=== PATIENT | female | born 1965 | race Two or more races ===

== ENCOUNTER 2024-04-30 13:10 | Day surgery (SDC) | payer MEDICAID, SELFPAY ==
[2024-04-29 15:24] VITALS: BMI 36.0
[2024-04-30] VITALS (12 sets, daily range): BP systolic 112–157; BP diastolic 70–96; PULSE 64–79; RESP 12–19; TEMP 36.7–36.9; O2SAT 96–100; BMI 22.8
[2024-04-30] MEDS: SODIUM CHLORIDE 0.9% 100 ML IV (14:30)
[2024-04-30] MEDS: DiphenhydrAMINE INJ 50 MG/ML VIAL 25 MG IV (14:37)
[2024-04-30] MEDS: MIDAZOLAM INJ 1 MG/ML VIAL 2 ML (ASD USE ONLY) 2 MG IV ×2 (14:41→15:03)
[2024-04-30] MEDS: fentaNYL CIT INJ 50 mCg/ML AMP 2ML (ASD USE ONLY) IV ×2 (14:42→15:03)
--- NOTE | 2024-04-30 16:04 | SUR.PHASEII ---
1515: Pt received for recovery. Report from Maeve KIMBLE. Pt sleepy. Easily aroused. Resp even, unlabored. VS stable. No c/o pain, discomfort. 1537: Pt more awake, alert. Sitting up tolerating po fluids with no difficulty swallowing and no n/v. 1610: Pt fully awake, oriented x3. Pt assisted to restroom. Ambulation steady. Pt and daughter stated understanding of discharge instructions. Pt discharged from [facility] in stable condition.
== END 2024-04-30 16:10 | disposition home or self-care (01) ==
PROVIDERS: PCP Physician Assistant; Referring Provider Internal Medicine Gastroenterology; Visit Provider Internal Medicine Gastroenterology
PROC: 0DBE8ZX Excision of Large Intestine, Via Natural or Artificial Opening Endoscopic, Diagnostic (ICD-10-PCS; CPT 45380; principal; 2024-04-30 13:30)
DX: Z12.11 Encounter for screening for malignant neoplasm of colon (principal); K64.9 Unspecified hemorrhoids; K57.30 Diverticulosis of large intestine without perforation or abscess without bleeding
CPT/HCPCS: 45380; A4649; J1200; J2250; J3010; J7050